=== PATIENT | female | born 1965 | race Caucasian/White ===

== ENCOUNTER 2017-10-15 17:35 | Inpatient (IN) | payer BC ==
[2017-10-15] MEDS ORDERED: Albuterol/Ipratropium Neb 3 ML AERS HHN ONE ×2 (17:42→17:43)
--- NOTE | 2017-10-15 17:50 | ED Physician Chart ---
ED Chief Complaint/HPI - Patient Information Date Seen:: 10/15/17 Time Seen:: 17:35 Chief Complaint:: Dyspnea History of Present Illness:: onset x one day of dyspnea, cough, fever, and congestion; pt denies E/As, H/As, S/T, neck pain, C/P, Abd. Pain, A/N/V/D/C, chills, or urinary s/s Historian:: Patient, EMS Review:: Nurse's Note Reviewed, EMS run form Reviewed ED Review of Systems - Review of Systems General/Constitutional: Fever, No chills, No weight loss, No weakness, No diaphoresis, No edema, No loss of appetite Skin: No skin lesions, No rash, No bruising Head: No headache, No light-headedness Eyes: No loss of vision, No pain, No diplopia ENT: No earache, Nasal drainage, No sore throat, No tinnitus Neck: No neck pain, No swelling, No thyromegaly, No stiffness, No mass noted Cardio Vascular: No chest pain, No palpitations, No PND, No orthopnea, No edema Pulmonary: SOB, Cough, No sputum, Wheezing GI: No nausea, No vomiting, No diarrhea, No pain, No melena, No hematochezia, No constipation, No hematemesis G/U: No dysuria, No frequency, No hematuria, No nacturia 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, No abnormal vaginal bleed, No contraction Musculoskeletal: No bone or joint pain, No back pain, No muscle pain Endocrine: No polyuria, No polydipsia Psychiatric: No prior psych history, No depression, No anxiety, No suicidal ideation, No homicidal ideation, No auditory hallucination, No visual hallucination Hematopoietic: No bruising, No lymphadenopathy Allergic/Immuno: No urticaria, No angioedema Neurological: No syncope, No focal symptoms, No weakness, No paresthesia, No headache, No seizure, No dizziness, No confusion, No vertigo ED Past Medical History - Past Medical History Obtainable: Yes Past Medical History: HTN, Asthma/COPD Family History: HTN Social History: Non Smoker, No Alcohol, No Drug Use, Single Surgical History: Appendectomy, Psychiatricy History: None Medication: Reviewed ED Physical Exam - Physical Examination General/Constitutional: Awake, Well-developed, well-nourished, Alert, No distress, GCS 15, Non-toxic appearing, Ambulatory Head: Atraumatic Eyes: Lids, conjuctiva normal, PERRL, EOMI Skin: Nl inspection, No rash, No skin lesions, No ecchymosis, Well hydrated, No lymphadenopathy ENMT: External ears, nose nl, TM canals nl, Nasal exam nl, Lips, teeth, gums nl , Oropharynx nl, Tonsils nl Neck: Nontender, Full ROM w/o pain, No JVD, No nuchal rigidity, No bruit, No mass, No stridor Respiratory: Nl effort/Exclusion Other Respiratory comments:: Lungs: + Expiratory Wheezes Cardio Vascular: RRR, No murmur, gallop, rubs, NL S1 S2, Carotid/Femoral/Distal pulses equal bilaterally GI: No tenderness/rebounding/guarding, No organomegaly, No hernia, Normal BS's, Nondistended, No mass/bruits, No McBurney tenderness : No CVA tenderness Extremities: No tenderness or effusion, Full ROM, normal strength in all extremities, No edema, Normal digits & nails Neuro/Psych: Alert/oriented, DTR's symmetric, Normal sensory exam, Normal motor strength, Judgement/insight normal, Mood normal, Normal gait, No focal deficits Misc: Normal back, No paraspinal tenderness ED Septic Shock - . Is Septic Shock (SBP<90, OR Lactate>4 mmol\L) present?: No
[2017-10-15] MEDS ORDERED: cefTRIAXone 1 GM in Sodium Chloride 0.9% 50 ML IV ONE (17:55)
[2017-10-15 18:56] LABS: % BASOPHILS 0.1 % (0.0-2.0); % EOSINOPHILS 5.1 % (0.0-5.0); % LYMPHOCYTES 12.6 % (20.0-50.0); % MONOCYTES 6.6 % (2.0-10.0); % NEUTROPHILS 75.6 % (40.0-80.0); EOSINOPHILE ABSOLUTE 0.4 Th/cmm (0.1-0.4); HEMATOCRIT 45.9 % (41.0-60); HEMOGLOBIN 15.2 gm/dL (12-16); LYMPHOCYTE ABSOLUTE 1.1 Th/cmm (1.5-3.0); MEAN CELL VOLUME 90.9 fl (81-100); MEAN CORPUSCULAR HEMOGLOBIN 30.1 pg (27.0-31.0); MEAN CORPUSCULAR HGB CONC 33.1 pg (28.0-36.0); MEAN PLATELET VOLUME 8.2 fl; MONOCYTE ABSOLUTE 0.6 Th/cmm (0.3-1.0); NEUTROPHILE ABSOLUTE 6.6 Th/cmm (1.8-8.0); PLATELET COUNT 217 Th/cmm (150-400); RED BLOOD COUNT 5.06 Mil/cmm (3.80-5.10); RED CELL DISTRIBUTION WIDTH 12.4 % (11.5-20.0); WHITE BLOOD COUNT 8.7 Th/cmm (4.8-10.8)
[2017-10-15 19:15] LABS: ALB/GLOB RATIO 1.7 (1.0-1.8); ALBUMIN 4.5 gm/dL (3.7-5.3); ALKALINE PHOSPHATASE 66 U/L (34-104); ANION GAP 15.2 (7.0-16.0); BILIRUBIN,TOTAL 0.5 mg/dL (0.3-1.0); BUN - UREA NITROGEN 12 mg/dL (7-25); CALCIUM SERUM 9.7 mg/dL (8.6-10.3); CARBON DIOXIDE 23.6 mEq/L (21.0-31.0); CHLORIDE 101 mEq/L (98-107); CHOLESTEROL 258 mg/dL (<200); CREATININE - SERUM 0.9 mg/dL (0.6-1.2); CREATININE KINASE 51 U/L (30-223); GFR AFRICAN-AMERICAN > 60.0 ml/min (>90); GFR NON AFRICAN-AMERICAN > 60.0 ml/min; GLUCOSE 155 mg/dL (70-105); HDL -HIGH DENSITY LIPOPROTEIN 65 mg/dL (23-92); SGOT 15 U/L (13-39); SGPT/ALT 16 U/L (7-52); SODIUM SERUM 137 mEq/L (136-145); TOTAL PROTEIN,SERUM 7.2 gm/dL (6.0-8.3); TRIGLYCERIDES 206 mg/dL (<150)
[2017-10-15 19:21] LABS: PROTHROMBIN TIME (TEST) 10.4 SECONDS (9.5-11.5)
[2017-10-15 19:28] LABS: POTASSIUM SERUM 2.8 mEq/L (3.5-5.1)
[2017-10-15] MEDS ORDERED: Potassium Chloride 20 mEq ER Tab PO ONE ×2 (19:44→19:47)
[2017-10-15] MEDS ORDERED: Sodium Chloride 0.9% 1,000 ML IV ONE (19:44)
[2017-10-15 21:50] LABS: URINE MICROSCOPIC INDICATED? YES; URINE SOURCE MIDSTREAM
[2017-10-15 21:55] LABS: URINE BILIRUBIN NEGATIVE (NEGATIVE); URINE BLOOD TRACE (NEGATIVE); URINE GLUCOSE (UA) NEGATIVE (NEGATIVE); URINE KETONE NEGATIVE (NEGATIVE); URINE LEUKOCYTE ESTERASE NEGATIVE (NEGATIVE); URINE NITRATE NEGATIVE (NEGATIVE); URINE PROTEIN 30 mg/dL (NEGATIVE); URINE UROBILINOGEN 0.2 E.U./dL (0.2 - 1.0)
[2017-10-15 21:56] LABS: URINE CLARITY HAZY (CLEAR); URINE COLOR ORANGE
[2017-10-15 21:59] LABS: URINE BACTERIA FEW /hpf (NONE SEEN); URINE EPITHELIAL CELLS FEW /lpf (FEW)
[2017-10-15 22:10] LABS: ALLEN TEST Positive
[2017-10-16] MEDS ORDERED: IOHEXOL 350mgI/mL 100mL Bottle IVP ONE (00:34)
[2017-10-16] MEDS ORDERED: Morphine Sulfate 2 mg/mL 1mL Syr IV PRN (04:32)
[2017-10-16] MEDS ORDERED: Heparin 25,000 Units In D5W 25,000 UNITS/250 ML BAG IV PRN (04:43)
[2017-10-16] MEDS: Albuterol/Ipratropium Neb 3 ML AERS HHN SCH ×5 (07:06→23:14)
--- NOTE | 2017-10-16 08:31 | Diagnostic Imaging Report ---
Exam: CT of the chest. HISTORY: Pulmonary embolism. Total DLP equals 408 CTDI equals 9.9 Findings: Multiple views of the section of the chest were obtained at obtained with administration of intravenous contrast material per pulmonary artery embolus protocol. Coronal and sagittal reconstruction technique was utilized. The study demonstrates a somewhat suboptimal injection bolus. There is suggestion of filling defect seen in the segmental branch of the right lower lobe pulmonary artery, if clinically indicated follow-up examination can be performed with the better bolus injection The remaining examination is intact. No acute pulmonic infiltrates or effusions are noted. Mediastinal structures midline no abnormal adenopathy appreciated Bilateral breast implants are noted. The visualized upper abdomen is intact. Bony structures demonstrate no evidence for lytic or blastic lesions. IMPRESSION: 1. Somewhat limited exam due to poor injection bolus. 2. Suggestion of filling defect seen in the segmental branch of the right lower lobe pulmonary artery small pulmonary embolism cannot be excluded. Follow-up examination recommended.
--- NOTE | 2017-10-16 08:31 | Diagnostic Imaging Report ---
EXAM: Doppler ultrasound examination of the lower extremities. HISTORY: DVT COMPARISON: None FINDINGS: Real-time ultrasound examination of lower extremities was performed utilizing color Doppler technique. The study demonstrates normal compressibility and augmentation of deep venous system throughout. IMPRESSION: No evidence for deep venous thrombosis lower extremities bilaterally.
[2017-10-16 08:54] LABS: % LYMPHOCYTES 14.5 % (20.0-50.0); % MONOCYTES 5.4 % (2.0-10.0); % NEUTROPHILS 80.1 % (40.0-80.0); MEAN CELL VOLUME 91.7 fl (81-100); MEAN CORPUSCULAR HEMOGLOBIN 31.1 pg (27.0-31.0); MEAN CORPUSCULAR HGB CONC 33.9 pg (28.0-36.0); MEAN PLATELET VOLUME 8.3 fl; MONOCYTE ABSOLUTE 0.4 Th/cmm (0.3-1.0); NEUTROPHILE ABSOLUTE 5.6 Th/cmm (1.8-8.0); PLATELET COUNT 239 Th/cmm (150-400); RED CELL DISTRIBUTION WIDTH 12.4 % (11.5-20.0)
[2017-10-16 08:55] LABS: HEMATOCRIT 41.3 % (41.0-60)
[2017-10-16 09:00] VITALS: BP 143/52
[2017-10-16 09:13] LABS: BUN - UREA NITROGEN 12 mg/dL (7-25); CALCIUM SERUM 9.5 mg/dL (8.6-10.3); CARBON DIOXIDE 22.3 mEq/L (21.0-31.0); CHLORIDE 104 mEq/L (98-107); CREATININE - SERUM 0.6 mg/dL (0.6-1.2); GFR AFRICAN-AMERICAN > 60.0 ml/min (>90); GFR NON AFRICAN-AMERICAN > 60.0 ml/min; GLUCOSE 176 mg/dL (70-105); POTASSIUM SERUM 3.3 mEq/L (3.5-5.1); SODIUM SERUM 137 mEq/L (136-145)
[2017-10-16] MEDS ORDERED: IOHEXOL 350mgI/mL 150mL IV ONE (09:38)
--- NOTE | 2017-10-16 14:05 | History & Physical ---
ADMIT DATE: 10/16/2017 CHIEF COMPLAINT: Increasing shortness of breath. HISTORY OF PRESENT ILLNESS: This is a 52-year-old morbidly obese middle-aged female with history of hypertension, admitted from home secondary to 6 months history of shortness of breath. She thought it was related to her asthma. The patient follows with Dr. Mathew in [place]. Denies chest pain. The patient with worsening respiratory distress was seen in the Emergency Room and admitted for acute PE. PAST MEDICAL HISTORY: As mentioned in history of present illness. PAST SURGICAL HISTORY: Status post appendectomy and . ALLERGIES: No known drug allergies. MEDICATIONS: The patient on losartan, Montelukast, ____ Lexapro, Losartan. FAMILY HISTORY: Noncontributory. SOCIAL HISTORY: Nonsmoker, drinks occasionally. No intravenous drug use. The patient works in [employer]. The patient has one daughter. REVIEW OF SYSTEMS: GENERAL: Complains not feeling well. HEENT: No blurred vision. LUNGS: Negative for COPD. The patient with asthma. HEART: The patient with hypertension. Denies coronary artery disease. ABDOMEN: No nausea, vomiting, or pain. GENITOURINARY: The patient denies increased frequency or dysuria. NEUROLOGIC: No headache, seizure or syncope. PSYCHIATRIC: Stable. PHYSICAL EXAMINATION: VITAL SIGNS: Blood pressure 155/70, respirations 19, pulse 87, temperature 99. GENERAL: Elderly female, morbidly obese. LUNGS: Equal breath sounds, few rhonchi. HEART: Regular rate and rhythm without appreciable murmur. ABDOMEN: Soft, globular. EXTREMITIES: Positive excoriations. NEUROLOGIC: Limited. LABORATORY DATA: WBC 7.2, hemoglobin 14, platelets 239. PTT 103. CO2 of 64, sodium 137, potassium 2.3, BUN 12, creatinine 0.6, blood sugar was 155. Lactic acid was elevated at 2.8. ASSESSMENT AND PLAN: Acute pulmonary embolism, shortness of breath, hypoxemia, hypertension, obesity, borderline diabetes, hypokalemia, and asthma. We will continue oxygen with treatments, continue anticoagulation. We will review the patient's CT angio. Continue with current care. Refer the patient to Pulmonary and Hematology. JOB# [id number]
--- NOTE | 2017-10-16 14:05 | Diagnostic Imaging Report ---
CT pulmonary angiogram of the chest with intravenous contrast (CTA) HISTORY: Shortness of breath, pulmonary of the lungs and Total DLP equals 245 CTDI equals 8.2 Following administration of intravenous contrast, axial sections were obtained from a level above the clavicles down to level below the diaphragm. The exam is compared with a study performed earlier in the day with suboptimal contrast opacification of the pulmonary arteries. The current exam demonstrates normal opacification of the main, right, and left pulmonary arteries. No intraluminal filling defects are seen. Specifically, no evidence of pulmonary embolism. The heart size is normal. No abnormal mediastinal masses are seen. No other hilar abnormalities. No acute focal pulmonary parenchymal processes. Bilateral breast implants are noted. IMPRESSION: 1. Satisfactory opacification of the pulmonary arteries compared to the exam performed earlier in the day. No evidence of pulmonary embolism. Results were communicated and discussed with Dr. Wright, October 16, 2017 (2:00 PM)
--- NOTE | 2017-10-16 14:21 | Consultation ---
DATE OF CONSULTATION: 10/16/2017 HEMATOLOGY AND ONCOLOGY CONSULTATION REFERRING PHYSICIAN: Dr. Wright. REASON FOR CONSULTATION: Pulmonary embolism. HISTORY OF PRESENT ILLNESS: The patient is a 52-year-old female, who was admitted with shortness of breath and had CT scan on admission that was limited study with a suggestion of filling defect in the segmental branch of the right lower lobe. Lower extremity venous duplex was negative. The patient was started on heparin, and I was asked to evaluate. PAST MEDICAL HISTORY: Hypertension, obesity, and bronchial asthma. PAST SURGICAL HISTORY: and bilateral breast augmentation and appendectomy. FAMILY HISTORY: Aunt and grandma had breast cancer. The breast cancer ____ is present in the family including her mother. The patient had her last mammogram 2 years ago. CURRENT MEDICATIONS: Reviewed including Diovan, Zofran, heparin, and DuoNeb. PHYSICAL EXAMINATION: GENERAL: She is awake, not in distress. VITAL SIGNS: Blood pressure is stable, saturation 96% on nasal cannula oxygen, pulse 97. HEENT: Atraumatic. NECK: Supple. CHEST: Scattered wheezing. ABDOMEN: Obese, soft. BREASTS: Bilateral breast implants. No masses. EXTREMITIES: No edema. NERVOUS SYSTEM: Nonfocal. LABORATORY DATA: CBC is unremarkable. PT and PTT are baseline normal. Creatinine is 0.6. D-dimer elevated at 617. ASSESSMENT: CT scan suspicious, but not confirmatory of pulmonary embolism because of the poor injection bolus and possible filling defects because of inadequate contrast. The scan will be repeated. Meanwhile, the patient will be continued on heparin infusion. The scanning did not show any breast pathology except breast implants and ____ pathology in the abdomen or the bones. If the repeat scan confirms the pulmonary embolism, the patient will be placed on oral anticoagulation, to be followed as an outpatient and if it is negative, then the anticoagulation will be discontinued. Thank you, Dr. Wright for the opportunity to participate in the care of this interesting case. JOB# [id number]
[2017-10-16] MEDS: guaiFENesin 200 MG/10 ML UDC PO PRN (14:46)
[2017-10-16] MEDS: methylPREDNISolone SS 40 mg Vial IVP SCH ×2 (14:47→20:45)
[2017-10-16] MEDS ORDERED: Non-Formulary Item 1 EA (Fluticasone/Salmeterol [Advair 250-50 Diskus] 1 PUFF) INH SCH (17:00)
[2017-10-16] MEDS: INSULIN ASPART, RECOMBINANT 100 UNITS/ML SUBQ SCH ×2 (17:20→20:47)
[2017-10-16] MEDS ORDERED: Potassium Chloride 20 mEq ER Tab PO ONE (17:28)
[2017-10-16] MEDS: Sodium Chloride 0.45% 1,000 ML IV SCH (19:00)
[2017-10-16] MEDS: Budesonide 0.5 Mg/2 mL Ud HHN SCH (19:19)
--- NOTE | 2017-10-16 22:00 | Progress Notes ---
DATE: 10/16/2017 REASON FOR CONSULTATION: Help the patient with shortness of breath with acute bronchial asthma. CONSULT NOTE: This is a 52 years old female who has a chronic bronchial asthma for the last couple of years. She had lot of problems at the childhood, but subsequently get better, over the last couple of months is not well controlled. She is taking multiple inhalers, but continues to have problems on and off and she attributes to allergy. The patient's symptoms got more worse in last few days, increasing coughing, some wheezing, not too much sputum production and more shortness of breath. Subsequently, came to the Emergency Room for further care and necessary treatment has a history of hypertension and history of depression, taking various medication for that. PAST MEDICAL HISTORY: Hypertension, depression, chronic bronchial asthma, question suspect sleep apnea syndrome. ALLERGIES: Cats, pollens, dust, etc. SOCIAL HISTORY: Smoking history very remotely in the past and currently is unemployed. FAMILY HISTORY: Positive for bronchial asthma. PHYSICAL EXAMINATION: Physical finding: GENERAL: This is a middle-aged heavyset-looking female, awake, alert, oriented, not in acute distress. VITAL SIGNS: The patient's recorded vitals, temperature is 98.1, blood pressure 144/69, saturation is 94 on 2 liters of oxygen. ENT: Shows no new acute changes. NECK: Small oropharyngeal opening. No palpable nodes in the neck could be palpated. CHEST: Shows multiple scar skin lesions old bilaterally, and on auscultation, there are scattered wheezing with diminished air entry. HEART: Regular. EXTREMITIES: Shows slight trace of peripheral edema. LABORATORY STUDIES: White count is 7000, hemoglobin 14 grams and the patient had blood gases done yesterday, pO2 was 64 on room air and the patient's chest x-ray shows hyperventilation, otherwise unremarkable and CT of angio shows slightly air trapping, but otherwise unremarkable. IMPRESSION: 1. The patient has acute asthmatic bronchitis, precipitating factor multifactorial. 2. Morbid obesity. 3. Hypertension. 4. Suspect obstructive sleep apnea syndrome. PLANS AND SUGGESTIONS: We will continue aggressive inhalation treatment, high dose of inhaled steroid, IV steroid. We will add montelukast to current treatment and empirical antibiotic and see how she does and go from there and we will see orders and lab tests, etc., in next 24 hours and pulmonary deng is okay to go on step down unit. [facility]# [id number]
[2017-10-17] MEDS: guaiFENesin 200 MG/10 ML UDC PO PRN (01:32)
[2017-10-17] MEDS: Albuterol/Ipratropium Neb 3 ML AERS HHN SCH ×6 (04:02→23:01)
[2017-10-17] MEDS: Sodium Chloride 0.45% 1,000 ML IV SCH (05:44)
[2017-10-17] MEDS: methylPREDNISolone SS 40 mg Vial IVP SCH ×3 (06:15→20:28)
[2017-10-17 06:17] LABS: HEMATOCRIT 42.1 % (41.0-60); MEAN CELL VOLUME 91.8 fl (81-100); MEAN CORPUSCULAR HEMOGLOBIN 30.5 pg (27.0-31.0); MEAN CORPUSCULAR HGB CONC 33.2 pg (28.0-36.0); MEAN PLATELET VOLUME 8.7 fl; PLATELET COUNT 262 Th/cmm (150-400); RED BLOOD COUNT 4.58 Mil/cmm (3.80-5.10); RED CELL DISTRIBUTION WIDTH 12.5 % (11.5-20.0)
[2017-10-17 06:22] LABS: MANUAL DIFF REQUIRED? YES; WHITE BLOOD COUNT 9.8 Th/cmm (4.8-10.8)
[2017-10-17 06:24] LABS: ANION GAP 10.6 (7.0-16.0); BUN - UREA NITROGEN 16 mg/dL (7-25); CALCIUM SERUM 9.5 mg/dL (8.6-10.3); CARBON DIOXIDE 25.5 mEq/L (21.0-31.0); CHLORIDE 103 mEq/L (98-107); CREATININE - SERUM 0.7 mg/dL (0.6-1.2); GFR AFRICAN-AMERICAN > 60.0 ml/min (>90); GFR NON AFRICAN-AMERICAN > 60.0 ml/min; GLUCOSE 184 mg/dL (70-105); POTASSIUM SERUM 4.1 mEq/L (3.5-5.1); SODIUM SERUM 135 mEq/L (136-145)
[2017-10-17] MEDS: INSULIN ASPART, RECOMBINANT 100 UNITS/ML SUBQ SCH ×4 (06:38→20:27)
[2017-10-17 06:57] LABS: BAND NEUTROPHILE 7 % (0-10); LYMPHOCYTE 8 % (20-50); MONOCYTE 6 % (2-10); NEUTROPHILS 79 % (40-80); PLATELET ESTIMATE ADEQUATE (NORMAL); TOTAL CELLS COUNTED 100
[2017-10-17] MEDS: Budesonide 0.5 Mg/2 mL Ud HHN SCH ×2 (07:50→19:34)
[2017-10-17 08:04] LABS: BNP 51.3 pg/mL (5.0-100.0)
--- NOTE | 2017-10-17 08:53 | Diagnostic Imaging Report ---
Chest x-ray 2 views HISTORY: Shortness of breath COMPARISON: 10/16/2017 CT of the chest The overall heart size is normal. No focal pulmonary processes. No hilar or mediastinal abnormalities. IMPRESSION: No acute abnormalities.
[2017-10-17 09:53] LABS: ALLEN TEST YES; pH 7.39 (7.35-7.45)
--- NOTE | 2017-10-17 11:41 | General Progress Note ---
Subjective - Review of Systems Service Date: 10/17/17 Events since last encounter: less short of breath Objective - Results Result Diagrams: 10/17/17 06:00 10/17/17 06:00 Recent Labs: Laboratory Last Values WBC 9.8 Th/cmm (4.8-10.8) D 10/17/17 06:00 RBC 4.58 Mil/cmm (3.80-5.10) 10/17/17 06:00 Hgb 14.0 gm/dL (12-16) 10/17/17 06:00 Hct 42.1 % (41.0-60) 10/17/17 06:00 MCV 91.8 fl (81-100) 10/17/17 06:00 MCH 30.5 pg (27.0-31.0) 10/17/17 06:00 MCHC Differential 33.2 pg (28.0-36.0) 10/17/17 06:00 RDW 12.5 % (11.5-20.0) 10/17/17 06:00 Plt Count 262 Th/cmm (150-400) 10/17/17 06:00 MPV 8.7 fl 10/17/17 06:00 Neutrophils % 80.1 % (40.0-80.0) H 10/16/17 08:40 Band Neutrophils % 7 % (0-10) 10/17/17 06:00 Lymphocytes % 14.5 % (20.0-50.0) L 10/16/17 08:40 Monocytes % 5.4 % (2.0-10.0) 10/16/17 08:40 Eosinophils % 0.0 % (0.0-5.0) 10/16/17 08:40 Basophils % 0.0 % (0.0-2.0) 10/16/17 08:40 Neutrophils (Manual) 79 % (40-80) 10/17/17 06:00 Lymphocytes 8 % (20-50) L 10/17/17 06:00 Monocytes 6 % (2-10) 10/17/17 06:00 Platelet Estimate ADEQUATE (NORMAL) 10/17/17 06:00 PT 10.4 SECONDS (9.5-11.5) 10/15/17 18:48 INR 1.00 (0.5-1.4) 10/15/17 18:48 PTT (Actin FS) 27.0 SECONDS (26.0-38.0) 10/17/17 06:00 D-Dimer Cancelled 10/15/17 18:48 Specimen Source Arterial 10/17/17 09:45 Sample Site Right Radial 10/17/17 09:45 pH 7.39 (7.35-7.45) 10/17/17 09:45 pCO2 40.0 mmHg (35.0-45.0) 10/17/17 09:45 pO2 67.0 mmHg (80.0-100.0) L 10/17/17 09:45 HCO3 24.3 mEq/L (20.0-26.0) 10/17/17 09:45 Base Excess -0.7 mEq/L (-3.0-3.0) 10/17/17 09:45 O2 Saturation 93.0 % (92.0-100.0) 10/17/17 09:45 Herve Test YES 10/17/17 09:45 Vent Rate NA 10/17/17 09:45 Inspired O2 32 10/17/17 09:45 Tidal Volume NA 10/17/17 09:45 PEEP NA 10/17/17 09:45 Pressure (ins/psv/peep) NA 10/17/17 09:45 Critical Value E.TURNER 10/17/17 09:45 Sodium 135 mEq/L (136-145) L 10/17/17 06:00 Potassium 4.1 mEq/L (3.5-5.1) 10/17/17 06:00 Chloride 103 mEq/L (98-107) 10/17/17 06:00 Carbon Dioxide 25.5 mEq/L (21.0-31.0) 10/17/17 06:00 Anion Gap 10.6 (7.0-16.0) 10/17/17 06:00 BUN 16 mg/dL (7-25) 10/17/17 06:00 Creatinine 0.7 mg/dL (0.6-1.2) 10/17/17 06:00 Est GFR ( Amer) > 60.0 ml/min (>90) 10/17/17 06:00 Est GFR (Non-Af Amer) > 60.0 ml/min 10/17/17 06:00 BUN/Creatinine Ratio 22.9 10/17/17 06:00 Glucose 184 mg/dL (70-105) H 10/17/17 06:00 POC Glucose 209 MG/DL (70 - 105) H 10/16/17 20:34 Whole Bld Lactic Acid 1.38 mmol/L (0.60-1.99) 10/16/17 08:40 Calcium 9.5 mg/dL (8.6-10.3) 10/17/17 06:00 Total Bilirubin 0.5 mg/dL (0.3-1.0) 10/15/17 18:48 AST 15 U/L (13-39) 10/15/17 18:48 ALT 16 U/L (7-52) 10/15/17 18:48 Alkaline Phosphatase 66 U/L (34-104) 10/15/17 18:48 Creatine Kinase 51 U/L (30-223) 10/15/17 18:48 Troponin I 0.06 ng/mL (0.01-0.05) H 10/15/17 18:48 B-Natriuretic Peptide 51.3 pg/mL (5.0-100.0) 10/17/17 06:00 Total Protein 7.2 gm/dL (6.0-8.3) 10/15/17 18:48 Albumin 4.5 gm/dL (3.7-5.3) 10/15/17 18:48 Globulin 2.7 gm/dL 10/15/17 18:48 Albumin/Globulin Ratio 1.7 (1.0-1.8) 10/15/17 18:48 Triglycerides 206 mg/dL (<150) H 10/15/17 18:48 Cholesterol 258 mg/dL (<200) H 10/15/17 18:48 LDL Cholesterol Direct 186 mg/dL (75-193) 10/15/17 18:48 HDL Cholesterol 65 mg/dL (23-92) 10/15/17 18:48 TSH 0.16 uIU/ml (0.34-5.60) L 10/17/17 06:00 Serum , Qual NEGATIVE (NEGATIVE) 10/15/17 18:48 Urine Source MIDSTREAM 10/15/17 20:45 Urine Color ORANGE 10/15/17 20:45 Urine Clarity HAZY (CLEAR) 10/15/17 20:45 Urine pH 6.0 (4.6 - 8.0) 10/15/17 20:45 Ur Specific Gibbon 1.020 (1.005-1.030) 10/15/17 20:45 Urine Protein 30 mg/dL (NEGATIVE) H 10/15/17 20:45 Urine Glucose (UA) NEGATIVE mg/dL (NEGATIVE) 10/15/17 20:45 Urine Ketones NEGATIVE mg/dL (NEGATIVE) 10/15/17 20:45 Urine Blood TRACE (NEGATIVE) 10/15/17 20:45 Urine Nitrate NEGATIVE (NEGATIVE) 10/15/17 20:45 Urine Bilirubin NEGATIVE (NEGATIVE) 10/15/17 20:45 Urine Urobilinogen 0.2 E.U./dL (0.2 - 1.0) 10/15/17 20:45 Ur Leukocyte Esterase NEGATIVE (NEGATIVE) 10/15/17 20:45 Urine RBC 10-25 /hpf (0-5) H 10/15/17 20:45 Urine WBC 2-5 /hpf (0-5) 10/15/17 20:45 Ur Epithelial Cells FEW /lpf (FEW) 10/15/17 20:45 Urine Bacteria FEW /hpf (NONE SEEN) 10/15/17 20:45 - Physical Exam Vitals and I&O: Vital Signs Temp 98.7 F 10/17/17 07:00 Pulse 94 10/17/17 10:57 Resp 18 10/17/17 10:57 BP 154/82 10/17/17 10:00 Pulse Ox 98 10/17/17 10:57 Intake & Output 10/16/17 10/17/17 10/17/17 18:59 06:59 18:59 Intake Total 1217 1480.000 Balance 1217 1480.000 Weight (lbs) 120.202 kg 119.748 kg Intake: Intake, IV Amount 17 880.000 Heparin 25,000 Units In 17 D5W 25,000 units In 250 ml @ Titrate IV TITR PRN Rx#:[id number] Sodium Chloride 0.45% 1, 880.000 000 ml @ 80 mls/hr IV . [id number] MARQUITA Rx#:[id number] Oral 1200 600 TPN/PPN 0 Other: # Voids 2 2 # Bowel Movements 0 0 Active Medications: Current Medications Acetaminophen (Tylenol) 650 mg PO Q4HR PRN PRN Reason: FEVER Stop: 12/15/17 04:31 Albuterol/Ipratropium (Duoneb Neb) 3 ml HHN Q4HR MARQUITA Stop: 12/15/17 04:31 Last Admin: 10/17/17 11:00 Dose: 3 ml Albuterol/Ipratropium (Duoneb Neb) 3 ml HHN [id number] [facility] Stop: 12/15/17 18:59 Last Admin: 10/16/17 19:01 Dose: 3 ml Budesonide (Pulmicort) 0.5 mg HHN BIDRT [facility] Stop: 12/15/17 18:59 Last Admin: 10/17/17 07:50 Dose: 0.5 mg Escitalopram Oxalate (Lexapro) 10 mg PO DAILY MARQUITA PRN Reason: Protocol Stop: 12/16/17 08:59 Last Admin: 10/17/17 08:40 Dose: 10 mg Guaifenesin (Robitussin) 200 mg PO Q4HR PRN PRN Reason: Cough or Congestion Stop: 12/15/17 13:44 Last Admin: 10/17/17 01:32 Dose: 200 mg Sodium Chloride (Nacl 0.45%) 1,000 mls @ 80 mls/hr IV .[id number] [facility] Stop: 12/15/17 12:59 Last Infusion: 10/17/17 06:00 Dose: 80 mls/hr Insulin Aspart (Novolog) 0 units SUBQ ACHS MARQUITA PRN Reason: Protocol Stop: 12/15/17 16:29 Last Admin: 10/17/17 06:38 Dose: Not Given Methylprednisolone Sodium Succinate (Solu-Medrol) 40 mg IVP Q8HR [facility] Stop: 12/15/17 12:59 Last Admin: 10/17/17 06:15 Dose: 40 mg Montelukast Sodium (Singulair) 10 mg PO DAILY [facility] Stop: 12/16/17 08:59 Last Admin: 10/17/17 08:34 Dose: 10 mg Montelukast Sodium (Singulair) 10 mg PO HS [facility] Stop: 12/15/17 20:59 Last Admin: 10/16/17 20:45 Dose: 10 mg Morphine Sulfate (Morphine) 2 mg IV Q4HR PRN PRN Reason: PAIN Stop: 12/15/17 04:31 Ondansetron HCl (Zofran) 4 mg IV Q4HR PRN PRN Reason: Nausea / Vomiting Stop: 12/15/17 04:31 Valsartan (Diovan) 160 mg PO DAILY [facility] Stop: 12/15/17 09:44 Last Admin: 10/17/17 08:35 Dose: 160 mg General: Alert HEENT: Atraumatic Neck: Supple Cardiovascular: Regular rate Abdomen: Soft Assessment/Plan - Assessment Assessment: * Pulmonary embolism was ruled out on repeat CTA D/C heparin I'll sign off Thank you
[2017-10-17 14:15] LABS: A1C % 6.8 % (4.0-6.0)
--- NOTE | 2017-10-17 14:49 | Internal Medicine Prog Note ---
Internal Medicine Subjective - Subjective Service Date: 10/17/17 (c/o sinus congestion ) Patient seen and examined:: with staff Patient is:: awake Patient Complaints of:: congestion Internal Medicine Objective - Results Result Diagrams: 10/17/17 06:00 10/17/17 06:00 Recent Labs: Laboratory Last Values WBC 9.8 Th/cmm (4.8-10.8) D 10/17/17 06:00 RBC 4.58 Mil/cmm (3.80-5.10) 10/17/17 06:00 Hgb 14.0 gm/dL (12-16) 10/17/17 06:00 Hct 42.1 % (41.0-60) 10/17/17 06:00 MCV 91.8 fl (81-100) 10/17/17 06:00 MCH 30.5 pg (27.0-31.0) 10/17/17 06:00 MCHC Differential 33.2 pg (28.0-36.0) 10/17/17 06:00 RDW 12.5 % (11.5-20.0) 10/17/17 06:00 Plt Count 262 Th/cmm (150-400) 10/17/17 06:00 MPV 8.7 fl 10/17/17 06:00 Neutrophils % 80.1 % (40.0-80.0) H 10/16/17 08:40 Band Neutrophils % 7 % (0-10) 10/17/17 06:00 Lymphocytes % 14.5 % (20.0-50.0) L 10/16/17 08:40 Monocytes % 5.4 % (2.0-10.0) 10/16/17 08:40 Eosinophils % 0.0 % (0.0-5.0) 10/16/17 08:40 Basophils % 0.0 % (0.0-2.0) 10/16/17 08:40 Neutrophils (Manual) 79 % (40-80) 10/17/17 06:00 Lymphocytes 8 % (20-50) L 10/17/17 06:00 Monocytes 6 % (2-10) 10/17/17 06:00 Platelet Estimate ADEQUATE (NORMAL) 10/17/17 06:00 PT 10.4 SECONDS (9.5-11.5) 10/15/17 18:48 INR 1.00 (0.5-1.4) 10/15/17 18:48 PTT (Actin FS) 27.0 SECONDS (26.0-38.0) 10/17/17 06:00 D-Dimer Cancelled 10/15/17 18:48 Specimen Source Arterial 10/17/17 09:45 Sample Site Right Radial 10/17/17 09:45 pH 7.39 (7.35-7.45) 10/17/17 09:45 pCO2 40.0 mmHg (35.0-45.0) 10/17/17 09:45 pO2 67.0 mmHg (80.0-100.0) L 10/17/17 09:45 HCO3 24.3 mEq/L (20.0-26.0) 10/17/17 09:45 Base Excess -0.7 mEq/L (-3.0-3.0) 10/17/17 09:45 O2 Saturation 93.0 % (92.0-100.0) 10/17/17 09:45 Herve Test YES 10/17/17 09:45 Vent Rate NA 10/17/17 09:45 Inspired O2 32 10/17/17 09:45 Tidal Volume NA 10/17/17 09:45 PEEP NA 10/17/17 09:45 Pressure (ins/psv/peep) NA 10/17/17 09:45 Critical Value E.TURNER 10/17/17 09:45 Sodium 135 mEq/L (136-145) L 10/17/17 06:00 Potassium 4.1 mEq/L (3.5-5.1) 10/17/17 06:00 Chloride 103 mEq/L (98-107) 10/17/17 06:00 Carbon Dioxide 25.5 mEq/L (21.0-31.0) 10/17/17 06:00 Anion Gap 10.6 (7.0-16.0) 10/17/17 06:00 BUN 16 mg/dL (7-25) 10/17/17 06:00 Creatinine 0.7 mg/dL (0.6-1.2) 10/17/17 06:00 Est GFR ( Amer) > 60.0 ml/min (>90) 10/17/17 06:00 Est GFR (Non-Af Amer) > 60.0 ml/min 10/17/17 06:00 BUN/Creatinine Ratio 22.9 10/17/17 06:00 Glucose 184 mg/dL (70-105) H 10/17/17 06:00 POC Glucose 182 MG/DL (70 - 105) H 10/17/17 13:42 Hemoglobin A1c % 6.8 % (4.0-6.0) H 10/17/17 06:00 Whole Bld Lactic Acid 1.38 mmol/L (0.60-1.99) 10/16/17 08:40 Calcium 9.5 mg/dL (8.6-10.3) 10/17/17 06:00 Total Bilirubin 0.5 mg/dL (0.3-1.0) 10/15/17 18:48 AST 15 U/L (13-39) 10/15/17 18:48 ALT 16 U/L (7-52) 10/15/17 18:48 Alkaline Phosphatase 66 U/L (34-104) 10/15/17 18:48 Creatine Kinase 51 U/L (30-223) 10/15/17 18:48 Troponin I 0.06 ng/mL (0.01-0.05) H 10/15/17 18:48 B-Natriuretic Peptide 51.3 pg/mL (5.0-100.0) 10/17/17 06:00 Total Protein 7.2 gm/dL (6.0-8.3) 10/15/17 18:48 Albumin 4.5 gm/dL (3.7-5.3) 10/15/17 18:48 Globulin 2.7 gm/dL 10/15/17 18:48 Albumin/Globulin Ratio 1.7 (1.0-1.8) 10/15/17 18:48 Triglycerides 206 mg/dL (<150) H 10/15/17 18:48 Cholesterol 258 mg/dL (<200) H 10/15/17 18:48 LDL Cholesterol Direct 186 mg/dL (75-193) 10/15/17 18:48 HDL Cholesterol 65 mg/dL (23-92) 10/15/17 18:48 TSH 0.16 uIU/ml (0.34-5.60) L 10/17/17 06:00 Serum , Qual NEGATIVE (NEGATIVE) 10/15/17 18:48 Urine Source MIDSTREAM 10/15/17 20:45 Urine Color ORANGE 10/15/17 20:45 Urine Clarity HAZY (CLEAR) 10/15/17 20:45 Urine pH 6.0 (4.6 - 8.0) 10/15/17 20:45 Ur Specific [place] 1.020 (1.005-1.030) 10/15/17 20:45 Urine Protein 30 mg/dL (NEGATIVE) H 10/15/17 20:45 Urine Glucose (UA) NEGATIVE mg/dL (NEGATIVE) 10/15/17 20:45 Urine Ketones NEGATIVE mg/dL (NEGATIVE) 10/15/17 20:45 Urine Blood TRACE (NEGATIVE) 10/15/17 20:45 Urine Nitrate NEGATIVE (NEGATIVE) 10/15/17 20:45 Urine Bilirubin NEGATIVE (NEGATIVE) 10/15/17 20:45 Urine Urobilinogen 0.2 E.U./dL (0.2 - 1.0) 10/15/17 20:45 Ur Leukocyte Esterase NEGATIVE (NEGATIVE) 10/15/17 20:45 Urine RBC 10-25 /hpf (0-5) H 10/15/17 20:45 Urine WBC 2-5 /hpf (0-5) 10/15/17 20:45 Ur Epithelial Cells FEW /lpf (FEW) 10/15/17 20:45 Urine Bacteria FEW /hpf (NONE SEEN) 10/15/17 20:45 - Physical Exam Vitals and I&O: Vital Signs Temp 98 F 10/17/17 12:00 Pulse 88 10/17/17 14:00 Resp 18 10/17/17 14:00 BP 155/82 10/17/17 14:00 Pulse Ox 97 10/17/17 14:00 Intake & Output 10/16/17 10/17/17 10/17/17 18:59 06:59 18:59 Intake Total 1217 1480.000 Balance 1217 1480.000 Weight (lbs) 265 lb 264 lb Intake: Intake, IV Amount 17 880.000 Heparin 25,000 Units In 17 D5W 25,000 units In 250 ml @ Titrate IV TITR PRN Rx#:[id number] Sodium Chloride 0.45% 1, 880.000 000 ml @ 80 mls/hr IV . [id number] [facility] Rx#:[id number] Oral 1200 600 TPN/PPN 0 Other: # Voids 2 2 # Bowel Movements 0 0 Active Medications: Current Medications Acetaminophen (Tylenol) 650 mg PO Q4HR PRN PRN Reason: FEVER Stop: 12/15/17 04:31 Albuterol/Ipratropium (Duoneb Neb) 3 ml HHN Q4HR [facility] Stop: 12/15/17 04:31 Last Admin: 10/17/17 11:00 Dose: 3 ml Albuterol/Ipratropium (Duoneb Neb) 3 ml HHN [id number] [facility] Stop: 12/15/17 18:59 Last Admin: 10/16/17 19:01 Dose: 3 ml Budesonide (Pulmicort) 0.5 mg HHN BIDRT [facility] Stop: 12/15/17 18:59 Last Admin: 10/17/17 07:50 Dose: 0.5 mg Escitalopram Oxalate (Lexapro) 10 mg PO DAILY [facility] PRN Reason: Protocol Stop: 12/16/17 08:59 Last Admin: 10/17/17 08:40 Dose: 10 mg Guaifenesin (Robitussin) 200 mg PO Q4HR PRN PRN Reason: Cough or Congestion Stop: 12/15/17 13:44 Last Admin: 10/17/17 01:32 Dose: 200 mg Sodium Chloride (Nacl 0.45%) 1,000 mls @ 80 mls/hr IV .[id number] [facility] Stop: 12/15/17 12:59 Last Infusion: 10/17/17 06:00 Dose: 80 mls/hr Insulin Aspart (Novolog) 0 units SUBQ ACHS [facility] PRN Reason: Protocol Stop: 12/15/17 16:29 Last Admin: 10/17/17 13:48 Dose: Not Given Methylprednisolone Sodium Succinate (Solu-Medrol) 40 mg IVP Q8HR [facility] Stop: 12/15/17 12:59 Last Admin: 10/17/17 13:29 Dose: 40 mg Montelukast Sodium (Singulair) 10 mg PO DAILY [facility] Stop: 12/16/17 08:59 Last Admin: 10/17/17 08:34 Dose: 10 mg Montelukast Sodium (Singulair) 10 mg PO HS [facility] Stop: 12/15/17 20:59 Last Admin: 10/16/17 20:45 Dose: 10 mg Morphine Sulfate (Morphine) 2 mg IV Q4HR PRN PRN Reason: PAIN Stop: 12/15/17 04:31 Ondansetron HCl (Zofran) 4 mg IV Q4HR PRN PRN Reason: Nausea / Vomiting Stop: 12/15/17 04:31 Valsartan (Diovan) 160 mg PO DAILY [facility] Stop: 12/15/17 09:44 Last Admin: 10/17/17 08:35 Dose: 160 mg General: alert HEENT: NC/AT, PERRLA Neck: Supple Lungs: rales, ronchi Cardiovascular: RRR, Normal S1, Normal S2, without murmur Abdomen: soft, non-tender, non-distended, positive bowel sound Neurological: alert Internal Medicine Assmt/Plan - Assessment Assessment: acute PE- NO EVIDENCE 2ND CTA HYPOXEMIA SOB COUGH HYPOKALEMIA - Plan Plan: CONTINUE WITH INHALATION TREATMENTS SUPPLEMENTAL OXYGEN NEEDED CONTINUE IVABX WILL ADD SUDAPHED FOLLOW UP LABS IN AM
[2017-10-18] MEDS: Sodium Chloride 0.45% 1,000 ML IV SCH ×2 (00:10→16:48)
[2017-10-18 01:15] LABS: INF A SCREEN POS FOR INF A; INF B SCREEN NEG FOR INF B
--- NOTE | 2017-10-18 02:00 | Progress Notes ---
DATE: 10/17/2017 PROBLEM LIST: 1. Acute bronchial asthma. 2. Mild degree of morbid obesity. 3. Essential hypertension. SYMPTOMS: Nil. Feeling a little better. Has some rattle noise, mucus not coming out, but not too much of wheezing. PHYSICAL EXAMINATION: GENERAL: Not in any acute distress. VITAL SIGNS: The patient's temperature is 98.7, blood pressure 125/79, saturation is 96 on 2 liters per minute. NECK: Veins not visualized. CHEST: Occasional secretory noise with diminished air entry. HEART: Regular. ABDOMEN: Soft, nontender. EXTREMITIES: Shows no peripheral edema. LABORATORY DATA: ABG shows pO2 67 on 2 liters per oxygen. Electrolytes are okay. The patient's white count is 9.8. ASSESSMENT: The patient is clinically little better, still some coarse rhonchi with secretory noise. PLANS AND SUGGESTIONS: We will continue chest PTBD, continue inhalation treatment, avoid Mucomyst. Okay to go on a regular floor and go from there. JOB# [id number]
[2017-10-18] MEDS: Albuterol/Ipratropium Neb 3 ML AERS HHN SCH ×6 (02:55→23:01)
[2017-10-18] MEDS: methylPREDNISolone SS 40 mg Vial IVP SCH ×3 (05:02→20:12)
[2017-10-18 06:13] LABS: % BASOPHILS 0.3 % (0.0-2.0); % EOSINOPHILS 0.2 % (0.0-5.0); % LYMPHOCYTES 8.3 % (20.0-50.0); % MONOCYTES 4.4 % (2.0-10.0); % NEUTROPHILS 86.8 % (40.0-80.0); HEMATOCRIT 40.2 % (41.0-60); HEMOGLOBIN 13.9 gm/dL (12-16); LYMPHOCYTE ABSOLUTE 0.9 Th/cmm (1.5-3.0); MEAN CELL VOLUME 90.6 fl (81-100); MEAN CORPUSCULAR HEMOGLOBIN 31.4 pg (27.0-31.0); MEAN CORPUSCULAR HGB CONC 34.6 pg (28.0-36.0); MEAN PLATELET VOLUME 8.4 fl; MONOCYTE ABSOLUTE 0.5 Th/cmm (0.3-1.0); PLATELET COUNT 251 Th/cmm (150-400); RED BLOOD COUNT 4.44 Mil/cmm (3.80-5.10); RED CELL DISTRIBUTION WIDTH 12.4 % (11.5-20.0); WHITE BLOOD COUNT 11.4 Th/cmm (4.8-10.8)
[2017-10-18] MEDS: INSULIN ASPART, RECOMBINANT 100 UNITS/ML SUBQ SCH ×4 (06:32→20:14)
[2017-10-18 06:52] LABS: ANION GAP 12.8 (7.0-16.0); BUN - UREA NITROGEN 17 mg/dL (7-25); CALCIUM SERUM 9.1 mg/dL (8.6-10.3); CARBON DIOXIDE 24.1 mEq/L (21.0-31.0); CHLORIDE 104 mEq/L (98-107); CREATININE - SERUM 0.7 mg/dL (0.6-1.2); GFR AFRICAN-AMERICAN > 60.0 ml/min (>90); GFR NON AFRICAN-AMERICAN > 60.0 ml/min; GLUCOSE 175 mg/dL (70-105); POTASSIUM SERUM 3.9 mEq/L (3.5-5.1); SODIUM SERUM 137 mEq/L (136-145)
[2017-10-18] MEDS: Budesonide 0.5 Mg/2 mL Ud HHN SCH ×2 (07:44→18:59)
--- NOTE | 2017-10-18 11:47 | Internal Medicine Prog Note ---
Internal Medicine Subjective - Subjective Service Date: 10/18/17 (FEELS MUCH BETTER TODAY) Patient is:: awake Patient Complaints of:: congestion, cough Internal Medicine Objective - Results Result Diagrams: 10/18/17 05:30 10/18/17 05:30 Recent Labs: Laboratory Last Values WBC 11.4 Th/cmm (4.8-10.8) H 10/18/17 05:30 RBC 4.44 Mil/cmm (3.80-5.10) 10/18/17 05:30 Hgb 13.9 gm/dL (12-16) 10/18/17 05:30 Hct 40.2 % (41.0-60) L 10/18/17 05:30 MCV 90.6 fl (81-100) 10/18/17 05:30 MCH 31.4 pg (27.0-31.0) H 10/18/17 05:30 MCHC Differential 34.6 pg (28.0-36.0) 10/18/17 05:30 RDW 12.4 % (11.5-20.0) 10/18/17 05:30 Plt Count 251 Th/cmm (150-400) 10/18/17 05:30 MPV 8.4 fl 10/18/17 05:30 Neutrophils % 86.8 % (40.0-80.0) H 10/18/17 05:30 Band Neutrophils % 7 % (0-10) 10/17/17 06:00 Lymphocytes % 8.3 % (20.0-50.0) L 10/18/17 05:30 Monocytes % 4.4 % (2.0-10.0) 10/18/17 05:30 Eosinophils % 0.2 % (0.0-5.0) 10/18/17 05:30 Basophils % 0.3 % (0.0-2.0) 10/18/17 05:30 Neutrophils (Manual) 79 % (40-80) 10/17/17 06:00 Lymphocytes 8 % (20-50) L 10/17/17 06:00 Monocytes 6 % (2-10) 10/17/17 06:00 Platelet Estimate ADEQUATE (NORMAL) 10/17/17 06:00 PT 10.4 SECONDS (9.5-11.5) 10/15/17 18:48 INR 1.00 (0.5-1.4) 10/15/17 18:48 PTT (Actin FS) 23.4 SECONDS (26.0-38.0) L 10/18/17 05:30 D-Dimer Cancelled 10/15/17 18:48 Specimen Source Arterial 10/17/17 09:45 Sample Site Right Radial 10/17/17 09:45 pH 7.39 (7.35-7.45) 10/17/17 09:45 pCO2 40.0 mmHg (35.0-45.0) 10/17/17 09:45 pO2 67.0 mmHg (80.0-100.0) L 10/17/17 09:45 HCO3 24.3 mEq/L (20.0-26.0) 10/17/17 09:45 Base Excess -0.7 mEq/L (-3.0-3.0) 10/17/17 09:45 O2 Saturation 93.0 % (92.0-100.0) 10/17/17 09:45 Herve Test YES 10/17/17 09:45 Vent Rate NA 10/17/17 09:45 Inspired O2 32 10/17/17 09:45 Tidal Volume NA 10/17/17 09:45 PEEP NA 10/17/17 09:45 Pressure (ins/psv/peep) NA 10/17/17 09:45 Critical Value E.TURNER 10/17/17 09:45 Sodium 137 mEq/L (136-145) 10/18/17 05:30 Potassium 3.9 mEq/L (3.5-5.1) 10/18/17 05:30 Chloride 104 mEq/L (98-107) 10/18/17 05:30 Carbon Dioxide 24.1 mEq/L (21.0-31.0) 10/18/17 05:30 Anion Gap 12.8 (7.0-16.0) 10/18/17 05:30 BUN 17 mg/dL (7-25) 10/18/17 05:30 Creatinine 0.7 mg/dL (0.6-1.2) 10/18/17 05:30 Est GFR ( Amer) > 60.0 ml/min (>90) 10/18/17 05:30 Est GFR (Non-Af Amer) > 60.0 ml/min 10/18/17 05:30 BUN/Creatinine Ratio 24.3 10/18/17 05:30 Glucose 175 mg/dL (70-105) H 10/18/17 05:30 POC Glucose 245 MG/DL (70 - 105) H 10/18/17 11:02 Hemoglobin A1c % 6.8 % (4.0-6.0) H 10/17/17 06:00 Whole Bld Lactic Acid 1.38 mmol/L (0.60-1.99) 10/16/17 08:40 Calcium 9.1 mg/dL (8.6-10.3) 10/18/17 05:30 Total Bilirubin 0.5 mg/dL (0.3-1.0) 10/15/17 18:48 AST 15 U/L (13-39) 10/15/17 18:48 ALT 16 U/L (7-52) 10/15/17 18:48 Alkaline Phosphatase 66 U/L (34-104) 10/15/17 18:48 Creatine Kinase 51 U/L (30-223) 10/15/17 18:48 Troponin I 0.06 ng/mL (0.01-0.05) H 10/15/17 18:48 B-Natriuretic Peptide 51.3 pg/mL (5.0-100.0) 10/17/17 06:00 Total Protein 7.2 gm/dL (6.0-8.3) 10/15/17 18:48 Albumin 4.5 gm/dL (3.7-5.3) 10/15/17 18:48 Globulin 2.7 gm/dL 10/15/17 18:48 Albumin/Globulin Ratio 1.7 (1.0-1.8) 10/15/17 18:48 Triglycerides 206 mg/dL (<150) H 10/15/17 18:48 Cholesterol 258 mg/dL (<200) H 10/15/17 18:48 LDL Cholesterol Direct 186 mg/dL (75-193) 10/15/17 18:48 HDL Cholesterol 65 mg/dL (23-92) 10/15/17 18:48 TSH 0.16 uIU/ml (0.34-5.60) L 10/17/17 06:00 Serum , Qual NEGATIVE (NEGATIVE) 10/15/17 18:48 Urine Source MIDSTREAM 10/15/17 20:45 Urine Color ORANGE 10/15/17 20:45 Urine Clarity HAZY (CLEAR) 10/15/17 20:45 Urine pH 6.0 (4.6 - 8.0) 10/15/17 20:45 Ur Specific [place] 1.020 (1.005-1.030) 10/15/17 20:45 Urine Protein 30 mg/dL (NEGATIVE) H 10/15/17 20:45 Urine Glucose (UA) NEGATIVE mg/dL (NEGATIVE) 10/15/17 20:45 Urine Ketones NEGATIVE mg/dL (NEGATIVE) 10/15/17 20:45 Urine Blood TRACE (NEGATIVE) 10/15/17 20:45 Urine Nitrate NEGATIVE (NEGATIVE) 10/15/17 20:45 Urine Bilirubin NEGATIVE (NEGATIVE) 10/15/17 20:45 Urine Urobilinogen 0.2 E.U./dL (0.2 - 1.0) 10/15/17 20:45 Ur Leukocyte Esterase NEGATIVE (NEGATIVE) 10/15/17 20:45 Urine RBC 10-25 /hpf (0-5) H 10/15/17 20:45 Urine WBC 2-5 /hpf (0-5) 10/15/17 20:45 Ur Epithelial Cells FEW /lpf (FEW) 10/15/17 20:45 Urine Bacteria FEW /hpf (NONE SEEN) 10/15/17 20:45 Influenza A (Rapid) POS FOR INF A H 10/18/17 00:35 Influenza B (Rapid) NEG FOR INF B 10/18/17 00:35 - Physical Exam Vitals and I&O: Vital Signs Temp 98.6 F 10/18/17 08:00 Pulse 85 10/18/17 11:18 Resp 18 10/18/17 11:18 BP 168/95 10/18/17 08:44 Pulse Ox 94 10/18/17 11:18 Intake & Output 10/17/17 10/18/17 10/18/17 18:59 06:59 18:59 Intake Total 1578.667 240 480 Balance 1578.667 240 480 Weight (lbs) 264 lb 272 lb 1 oz 272 lb Intake: Intake, IV Amount 978.667 Sodium Chloride 0.45% 1, 978.667 000 ml @ 80 mls/hr IV . [id number] [facility] Rx#:[id number] Oral 600 240 480 Other: # Voids 3 3 # Bowel Movements 1 Active Medications: Current Medications Acetaminophen (Tylenol) 650 mg PO Q4HR PRN PRN Reason: FEVER Stop: 12/15/17 04:31 Albuterol/Ipratropium (Duoneb Neb) [address] [facility] Stop: 12/15/17 04:31 Last Admin: 10/18/17 11:18 Dose: 3 ml Albuterol/Ipratropium (Duoneb Neb) [id number] [facility] Stop: 12/15/17 18:59 Last Admin: 10/17/17 14:52 Dose: 3 ml Budesonide (Pulmicort) 0.[address] [facility] Stop: 12/15/17 18:59 Last Admin: 10/18/17 07:44 Dose: 0.5 mg Escitalopram Oxalate (Lexapro) [address] [facility] PRN Reason: Protocol Stop: 12/16/17 08:59 Last Admin: 10/18/17 08:43 Dose: 10 mg Guaifenesin (Robitussin) 200 mg PO Q4HR PRN PRN Reason: Cough or Congestion Stop: 12/15/17 13:44 Last Admin: 10/17/17 01:32 Dose: 200 mg Sodium Chloride (Nacl 0.45%) 1,000 mls @ 80 mls/hr IV .[id number] [facility] Stop: 12/15/17 12:59 Last Admin: 10/18/17 00:10 Dose: 80 mls/hr Insulin Aspart (Novolog) [address] [facility] PRN Reason: Protocol Stop: 12/15/17 16:29 Last Admin: 10/18/17 06:32 Dose: Not Given Methylprednisolone Sodium Succinate (Solu-Medrol) [address] [facility] Stop: 12/15/17 12:59 Last Admin: 10/18/17 05:02 Dose: 40 mg Montelukast Sodium (Singulair) [address] [facility] Stop: 12/16/17 08:59 Last Admin: 10/18/17 08:44 Dose: 10 mg Montelukast Sodium (Singulair) [address] [facility] Stop: 12/15/17 20:59 Last Admin: 10/17/17 20:28 Dose: 10 mg Morphine Sulfate (Morphine) 2 mg IV Q4HR PRN PRN Reason: PAIN Stop: 12/15/17 04:31 Ondansetron HCl (Zofran) 4 mg IV Q4HR PRN PRN Reason: Nausea / Vomiting Stop: 12/15/17 04:31 Pseudoephedrine HCl (Sudafed) 30 mg PO Q6H PRN PRN Reason: Congestion Stop: 12/16/17 14:48 Valsartan (Diovan) 160 mg PO DAILY [facility] Stop: 12/15/17 09:44 Last Admin: 10/18/17 08:44 Dose: 160 mg General: alert HEENT: NC/AT, PERRLA Neck: Supple Lungs: rales, ronchi Cardiovascular: RRR, Normal S1, Normal S2, without murmur Abdomen: soft, non-tender, non-distended, positive bowel sound Neurological: alert Internal Medicine Assmt/Plan - Assessment Assessment: acute PE- NO EVIDENCE 2ND CTA HYPOXEMIA SOB COUGH HYPOKALEMIA - Plan Plan: DC ONCE CLEARED BY PULMO CONTINUE WITH INHALATION TREATMENTS SUPPLEMENTAL OXYGEN NEEDED CONTINUE IVABX
[2017-10-18] MEDS: guaiFENesin 200 MG/10 ML UDC PO PRN (20:15)
--- NOTE | 2017-10-18 22:44 | Progress Notes ---
DATE: 10/18/2017 PROBLEM LIST: 1. Acute on chronic bronchial asthma. 2. Obstructive sleep apnea syndrome. 3. Morbid obesity. 4. Influenza virus type A. SYMPTOMS: Nil, feeling better, no specific new symptomatology. Still complains of runny nose, stuffy nose. PHYSICAL EXAMINATION: VITAL SIGNS: On exam, afebrile, pulse is in the 80s, respirations 20s, saturation 97% on 2 liters. NECK: Veins not visualized. CHEST: Shows diminished air entry. No other adventitious breath sounds. HEART: Regular. ABDOMEN: Soft and nontender. The patient's influenza is positive for type A. LABORATORY DATA: Other laboratory studies show white count is 12.4, hemoglobin 8.4, and electrolytes are okay. ASSESSMENT: 1. The patient is clinically stable, anemia of some undetermined nature, now influenza type A. 2. Poorly controlled, bronchial asthma, stable with obstructive sleep apnea syndrome. PLANS AND SUGGESTIONS: Okay pulmonary deng discharge. We will give patient ____ Medrol Dosepak, we will give Levaquin and montelukast and we will give either Breo and/or Advair and also Protonix and see how she does, and go from there. JOB# [id number]
[2017-10-18] MEDS ORDERED: cefTRIAXone 1 GM in Sodium Chloride 0.9% 50 ML IV SCH (23:00)
[2017-10-19] MEDS: Albuterol/Ipratropium Neb 3 ML AERS HHN SCH ×4 (02:53→15:37)
[2017-10-19] MEDS: methylPREDNISolone SS 40 mg Vial IVP SCH ×2 (04:51→14:04)
[2017-10-19] MEDS: INSULIN ASPART, RECOMBINANT 100 UNITS/ML SUBQ SCH ×3 (06:32→16:57)
[2017-10-19] MEDS: Sodium Chloride 0.45% 1,000 ML IV SCH (07:01)
[2017-10-19] MEDS: Budesonide 0.5 Mg/2 mL Ud HHN SCH (07:34)
--- NOTE | 2017-10-19 15:23 | Discharge Summary ---
DATE OF DISCHARGE: 10/19/2017 CHIEF COMPLAINT: Increasing shortness of breath. FINAL DIAGNOSES: Acute asthma exacerbation, acute bronchitis, diabetes, hypertension obesity, hypoxemia, electrolyte abnormalities. HISTORY: This is a 52-year-old morbidly obese middle-aged female with history of hypertension and depression was admitted from home secondary to increasing shortness of breath. The patient was brought in the ER and admitted initially for possible PE. PHYSICAL EXAMINATION: VITAL SIGNS: Blood pressure 150/89, respiration 20, pulse 87 and temperature 98.3. GENERAL: Elderly female, morbidly obese. NECK: Supple. No mass. LUNGS: Equal breath sounds, few rhonchi. HEART: Regular rate and rhythm without appreciable murmurs. ABDOMEN: Soft, globular. EXTREMITIES: Positive excoriations. HOSPITAL COURSE: The patient was admitted to the ICU and placed on anticoagulation. The patient was referred to Dr. Caleb Garcias for Pulmonary, Dr. Whitten for Hematology. The patient is ruled out for PE with second CT angiogram, the patient was given IV steroids and IV antibiotic and IV hydration. The patient was supposed for fluid by his swab patient's condition did improve. DISCHARGE INSTRUCTIONS: The patient to continue current medical regimen including steroids and IV antibiotic and p.o. antibiotic. The patient to follow with regular physician. The patient is to return to Emergency Room if her condition worsens. [facility]# [id number]
== END 2017-10-19 17:01 | disposition home or self-care (01) | DRG 203 ==
LOC: ER 17:35 → ICU 10-16 02:30 → MSI 10-17 21:40
PROVIDERS: ADMIT Internal Medicine; ATTEND Internal Medicine
DX: J45.901 Unspecified asthma with (acute) exacerbation (principal); E87.8 Other disorders of electrolyte and fluid balance, not elsewhere classified; E66.01 Morbid (severe) obesity due to excess calories; J09.X2 Influenza due to identified novel influenza A virus with other respiratory manifestations; E11.9 Type 2 diabetes mellitus without complications; J20.9 Acute bronchitis, unspecified; E87.6 Hypokalemia; D64.9 Anemia, unspecified; I10 Essential (primary) hypertension; R09.02 Hypoxemia; G47.33 Obstructive sleep apnea (adult) (pediatric); Z82.49 Family history of ischemic heart disease and other diseases of the circulatory system; Z80.3 Family history of malignant neoplasm of breast; Z79.899 Other long term (current) drug therapy; Z91.048 Other nonmedicinal substance allergy status; Z68.34 Body mass index [BMI] 34.0-34.9, adult
CPT/HCPCS: 36415-UA; 36600-90; 71020-TC; 71275-TC; 80048-TC; 80053-TC; 80061-TC; 81001-TC; 82550-TC; 82803-TC; 82948-90; 83036-90; 83605; 83880-TC; 84443-TC; 84484-TC; 84703-TC; 85007-TC; 85025-TC; 85027-TC; 85379-TC; 85610-TC; 85730-TC; 87804-TC; 93005; 93970-TC-50; 94640; 94667; 94668; 94760; 96375; J0696; J1644; J1815; J2920; J2930; J7030; Q9967; Z7610

== ENCOUNTER 2018-08-21 01:40 | Emergency (ER) | payer BC ==
[2018-08-21] MEDS ORDERED: Albuterol/Ipratropium Neb 3 ML AERS HHN ONE ×2 (01:43→01:52)
--- NOTE | 2018-08-21 01:58 | ED Physician Chart ---
ED Chief Complaint/HPI - Patient Information Date Seen:: 08/21/18 Time Seen:: 01:30 Chief Complaint:: Dyspnea History of Present Illness:: onset x 6 hours of dyspnea, cough, congestion, and wheezing; Hx of Asthma; pt denies trauma, H/as, S/T, neck pain, C/P, Abd. pain, A/N/V/D/C, fever, chills, or urinary s/s Allergies:: Allergies Allergy/AdvReac Type Severity Reaction Status Date / Time No Known Allergies Allergy Verified 10/15/17 18:11 Historian:: Patient Review:: Nurse's Note Reviewed ED Review of Systems - Review of Systems General/Constitutional: Fever, No chills, No weight loss, No weakness, No diaphoresis, No edema, No loss of appetite Skin: No skin lesions, No rash, No bruising Head: No headache, No light-headedness Eyes: No loss of vision, No pain, No diplopia ENT: No earache, Nasal drainage, No sore throat, No tinnitus Neck: No neck pain, No swelling, No thyromegaly, No stiffness, No mass noted Cardio Vascular: No chest pain, No palpitations, No PND, No orthopnea, No edema Pulmonary: SOB, Cough, No sputum, Wheezing GI: No nausea, No vomiting, No diarrhea, No pain, No melena, No hematochezia, No constipation, No hematemesis G/U: No dysuria, No frequency, No hematuria, No nacturia Education Specialist: No vaginal discharge, No abnormal vaginal bleed, No contraction Musculoskeletal: No bone or joint pain, No back pain, No muscle pain Endocrine: No polyuria, No polydipsia Psychiatric: No prior psych history, No depression, No anxiety, No suicidal ideation, No homicidal ideation, No auditory hallucination, No visual hallucination Hematopoietic: No bruising, No lymphadenopathy Allergic/Immuno: No urticaria, No angioedema Neurological: No syncope, No focal symptoms, No weakness, No paresthesia, No headache, No seizure, No dizziness, No confusion, No vertigo ED Past Medical History - Past Medical History Obtainable: Yes Past Medical History: HTN, Asthma/COPD, Dyslipidemia Family History: HTN Social History: Non Smoker, No Alcohol, No Drug Use, Surgical History: None Psychiatricy History: None Medication: Reviewed Family Medical History - Family Member Mother History Unknown: Yes Ethnicity: Non- Living Status: Still Living Hx Family Cancer: No Hx Family Coronary Artery Disease: No Hx Family Congestive Heart Failure: No Hx Family Hypertension: No Hx Family Stroke: No Hx Family Diabetes: No Hx Family Seizures: No Hx Family Dementia: No Hx Family AIDS: No Hx Family HIV: No Hx Family COPD: No Hx Family Hepatitis: No Hx Family Psychiatric Problems: No Hx Family Tuberculosis: No ED Physical Exam - Physical Examination General/Constitutional: Awake, Well-developed, well-nourished, Alert, No distress, GCS 15, Non-toxic appearing, Ambulatory Head: Atraumatic Eyes: Lids, conjuctiva normal, PERRL, EOMI Skin: Nl inspection, No rash, No skin lesions, No ecchymosis, Well hydrated, No lymphadenopathy ENMT: External ears, nose nl, TM canals nl, Nasal exam nl, Lips, teeth, gums nl , Oropharynx nl, Tonsils nl Neck: Nontender, Full ROM w/o pain, No JVD, No nuchal rigidity, No bruit, No mass, No stridor Respiratory: Nl effort/Exclusion Other Respiratory comments:: Lungs: + Rales, Rhonchi, and Wheezes Cardio Vascular: RRR, No murmur, gallop, rubs, NL S1 S2, Carotid/Femoral/Distal pulses equal bilaterally GI: No tenderness/rebounding/guarding, No organomegaly, No hernia, Normal BS's, Nondistended, No mass/bruits, No McBurney tenderness Other GI comments:: no pulsatile masses : No CVA tenderness Extremities: No tenderness or effusion, Full ROM, normal strength in all extremities, No edema, Normal digits & nails Neuro/Psych: Alert/oriented, DTR's symmetric, Normal sensory exam, Normal motor strength, Judgement/insight normal, Mood normal, Normal gait, No focal deficits Misc: Normal back, No paraspinal tenderness ED Labs/Radiology/EKG Results - Lab Results Comments:: Reviewed - Radiology Results Comments:: NAD - EKG Interpretations EKG Time:: 02:08 Rate & Rhythm: 85; NSR Comments:: non-specific st-t changes ED Septic Shock - . Is Septic Shock (SBP<90, OR Lactate>4 mmol\L) present?: No - <6hrs of presentation: Assessment of Lungs: Lung CTA bilateral, Ventilator, Decreased BS, Rhonchi, No Rhonchi, Rales, No Rales, Wheezing, No Wheezing, Stridor, No Stridor, Other, Documented in PE Assessment of Heart: RRR, Thrill, No thrill, Gallops, No Gallops, S3, S4, Rub, No Rub, Murmur, No Murmur, Other, Documented in PE EKG Interpretation: Documented in Result Capillary refill evaluation: Capillary refill < 2 secs, Documented in PE Skin Exam: Good Turgur ED Reassessment (Disposition) - Reassessment Reassessment:: Lungs: CTA; pt chose to sign out AMA; pt is asymptomatic upon discharge Reassessment Condition:: Improved - Diagnosis Diagnosis:: Dx: Dyspnea; Wheezing; Acute Asthma; Asthmatic Bronchitis - Aftercare/Follow up Instructions Aftercare/Follow-Up Instructions:: Counseled pt regarding lab results/diagnosis & need follow up, Refer to Discharge Instructions, Counseled pt & family regarding lab results/diagnosis & need follow up Medication Prescribed:: Rx: Amoxicillin 500mg po tid x 10 days; Proventil Inhaler: one puff qid prn wheezing; Cool Mist Vaporizer; take medications as prescribed; fluids - Patient Disposition Discharge/Transfer:: Against Medical Advice Condition at Disposition:: Stable, Improved (RTER prn if existing s/s reoccur and/or get worse and/or any other new s/s occur; X-Rays Instructions; ACIs given for all above Dx; Refer to Beverage Manager/Chainer KEMAL; F/U with PMD Today or prn; RTER prn if concerned)
[2018-08-21 02:21] LABS: % BASOPHILS 0.8 % (0.0-2.0); % LYMPHOCYTES 40.7 % (20.0-50.0); % MONOCYTES 5.7 % (2.0-10.0); % NEUTROPHILS 47.8 % (40.0-80.0); EOSINOPHILE ABSOLUTE 0.3 Th/cmm (0.1-0.4); HEMATOCRIT 44.8 % (41.0-60); HEMOGLOBIN 14.8 gm/dL (12-16); LYMPHOCYTE ABSOLUTE 2.4 Th/cmm (1.5-3.0); MEAN CORPUSCULAR HEMOGLOBIN 30.3 pg (27.0-31.0); MEAN CORPUSCULAR HGB CONC 32.9 pg (28.0-36.0); MEAN PLATELET VOLUME 8.6 fl; MONOCYTE ABSOLUTE 0.3 Th/cmm (0.3-1.0); NEUTROPHILE ABSOLUTE 2.8 Th/cmm (1.8-8.0); PLATELET COUNT 261 Th/cmm (150-400); RED BLOOD COUNT 4.87 Mil/cmm (3.80-5.10); RED CELL DISTRIBUTION WIDTH 12.1 % (11.5-20.0); WHITE BLOOD COUNT 5.8 Th/cmm (4.8-10.8)
[2018-08-21 02:35] LABS: ALB/GLOB RATIO 1.8 (1.0-1.8); ALBUMIN 4.2 gm/dL (3.7-5.3); ALKALINE PHOSPHATASE 69 U/L (34-104); ANION GAP 12.6 (7.0-16.0); BILIRUBIN,TOTAL 0.5 mg/dL (0.3-1.0); BUN - UREA NITROGEN 13 mg/dL (7-25); CALCIUM SERUM 9.4 mg/dL (8.6-10.3); CARBON DIOXIDE 23.2 mEq/L (21.0-31.0); CHLORIDE 106 mEq/L (98-107); CHOLESTEROL 247 mg/dL (<200); CREATININE - SERUM 0.7 mg/dL (0.6-1.2); CREATININE KINASE 47 U/L (30-223); GFR AFRICAN-AMERICAN > 60.0 ml/min (>90); GFR NON AFRICAN-AMERICAN > 60.0 ml/min; GLUCOSE 136 mg/dL (70-105); HDL -HIGH DENSITY LIPOPROTEIN 57 mg/dL (23-92); POTASSIUM SERUM 3.8 mEq/L (3.5-5.1); SGOT 13 U/L (13-39); SGPT/ALT 13 U/L (7-52); SODIUM SERUM 138 mEq/L (136-145); TOTAL PROTEIN,SERUM 6.6 gm/dL (6.0-8.3); TRIGLYCERIDES 167 mg/dL (<150)
[2018-08-21 02:37] LABS: INR 0.91 (0.5-1.4); PROTHROMBIN TIME (TEST) 9.5 SECONDS (9.5-11.5)
[2018-08-21 02:53] LABS: DDIMER QUANT < 100 ng/mL (100-400)
[2018-08-21] MEDS ORDERED: cefTRIAXone 1 GM in Sodium Chloride 0.9% 50 ML IV ONE (03:31)
--- NOTE | 2018-08-21 08:27 | Diagnostic Imaging Report ---
CHEST X-RAY: AP view INDICATION: Shortness of breath COMPARISON: Chest x-ray 10/17/[address] angiogram 10/16/2017 FINDINGS: Mild chronic interstitial lung changes are noted. There is no focal consolidation or pleural effusions The heart is normal in size. Mildly tortuous aorta is noted. The osseous structures are intact. IMPRESSION: Mild chronic interstitial lung changes. No focal consolidation identified Mildly tortuous aorta.
== END 2018-08-21 03:49 | disposition left against medical advice (07) ==
LOC: ER 01:40
DX: J45.909 Unspecified asthma, uncomplicated (principal); I10 Essential (primary) hypertension; E78.5 Hyperlipidemia, unspecified
CPT/HCPCS: 99285; 96374; 94760; 94640; 93005; 71045; 84484; 83880; 36415; 85379; 83605; 85025; 85610; 85730; 82550; 84703; 80053; 80061; 87040 ×2; Z7610; J2930